=== PATIENT | male | born 1990 | race Two or more races ===

== ENCOUNTER 2018-04-19 20:25 | Emergency (ER) | payer SELFPAY ==
[~2018-04-19] VITALS: Ht 177.8 cm; Wt 91.0 kg
[2018-04-20 00:33] VITALS: BP 117/66
== END 2018-04-20 00:38 | disposition home or self-care (01) ==
LOC: ER 20:25
DX: F10.129 Alcohol abuse with intoxication, unspecified (principal); F17.200 Nicotine dependence, unspecified, uncomplicated; Y90.0 Blood alcohol level of less than 20 mg/100 ml
CPT/HCPCS: 82962; 99283